=== PATIENT | female | born 1945 | race Caucasian/White ===

== ENCOUNTER → 2017-01-25 | Outpatient (CLI) | payer OTHER, MEDICARE | LOC: BMCIMAGING 14:38 | PROVIDERS: ATTEND Internal Medicine | DX: Z12.31 Encounter for screening mammogram for malignant neoplasm of breast (principal) | CPT/HCPCS: G0202 ==

== ENCOUNTER → 2017-10-21 | Outpatient (CLI) | payer OTHER, MEDICARE ==
[~2017-10-21] MED LIST: GADOBUTROL 10 ML VIAL IVP ONE
== END ==
LOC: FIMAGING 10:07
PROVIDERS: ATTEND Physician Assistant
DX: R93.0 Abnormal findings on diagnostic imaging of skull and head, not elsewhere classified (principal); J32.0 Chronic maxillary sinusitis; J32.3 Chronic sphenoidal sinusitis; H90.5 Unspecified sensorineural hearing loss
CPT/HCPCS: 70553; A9585

== ENCOUNTER → 2018-02-01 | Outpatient (CLI) | payer OTHER, MEDICARE | LOC: BMCIMAGING 16:11 | PROVIDERS: ATTEND Internal Medicine | DX: S92.515A Nondisplaced fracture of proximal phalanx of left lesser toe(s), initial encounter for closed fracture (principal); W22.03XA Walked into furniture, initial encounter ==

== ENCOUNTER → 2018-06-17 | Outpatient (CLI) | payer OTHER, MEDICARE | LOC: BMCIMAGING 15:10 | PROVIDERS: ATTEND Internal Medicine | DX: Z12.31 Encounter for screening mammogram for malignant neoplasm of breast (principal) ==

== ENCOUNTER 2018-11-15 18:00 | Emergency (ER) | payer OTHER, MEDICARE ==
--- NOTE | 2018-11-15 18:51 | EDPHY ---
General Time Seen by Provider: 11/15/18 18:51 Narrative: CLINICAL IMPRESSION: Left distal radius fracture ASSESSMENT/PLAN: Patient is a 73-year-old female with a significant history of asthma who presents with complaint of left forearm pain after sustaining a mechanical fall. Patient is nontoxic-appearing, she is in no acute distress on arrival. Forearm x-ray reveals subtle distal radius fracture. There was no evidence of open fracture, dislocation, compartment syndrome, DVT, cellulitis, septic arthritis or neurovascular compromise. Her history and physical examination is most consistent with acute left distal radius fracture. The patient was placed in a sugar-tong splint. CMS intact post splint placement. She declined need for narcotic, she was provided Tylenol. She was given a take-home pack for [place] and will otherwise continue Tylenol and /or ibuprofen as needed. Orthopedic referral provided, she will call tomorrow to schedule follow-up for repeat examination. Return precautions discussed-she will return to the emergency Department for significantly worsening or uncontrolled pain, significant swelling, numbness or tingling of the extremity, paleness or coolness of her digits, fever or for any other concerning symptom. The patient verbalizes understanding and she is in agreement with this plan. DIFFERENTIAL DX: Differential diagnosis including but not limited to contusion, sprain, fracture , dislocation, compartment syndrome ED PROCEDURES: Procedure: Splint placement. A sugar-tong splint was applied. After application of the splint I returned and re-examined the patient. The splint was adequately immobilizing the joint and distal to the splint the patient's circulation and sensation was intact. ED COURSE: 193: Discussed with Dr. Muñoz. CHIEF COMPLAINT: Left wrist and forearm pain. HPI: Patient is a 73-year-old female with a history of asthma who presents to the emergency department with left forearm pain after sustaining a trip and fall just prior to arrival. Patient reports she was walking her dog, got tangled in the leash when she accidentally fell landing directly on her left forearm. She did not fall with her arms stretched out, she hit directly on the lateral portion of her forearm. She did experience pain, it increases with rotating her forearm. Patient denies any previous injury or surgery to this extremity. She has not taken anything for pain prior to arrival. She denies any hand pain , wrist pain or elbow pain. She did not hit her head, there was no loss of consciousness. She denies any other injury or complaint. PAST MEDICAL HISTORY: Asthma Family History: Not contributory Social History: Occasional alcohol, denies cigarette smoking or illicit drug use ROS: A full 10 point review of systems was negative except for those mentioned in HPI. PHYSICAL EXAM: General Appearance: Alert, well-appearing and in no acute distress. HENT: Normocephalic, atraumatic. External ears are normal. Nares are clear, mucosa is pink. Oropharynx is clear. Eyes: PERRLA, EOMI. Conjunctiva pink, no pallor or injection. Neck: Supple, nontender, no lymphadenopathy, no midline pain, FROM. Respiratory: There are no retractions, lungs are clear to auscultation. Cardiac: Regular rate and rhythm, no murmurs or gallops. Gastrointestinal: Abdomen is soft, nontender, bowel sounds normal, no masses/ hernia, no rigidity, guarding or focal peritoneal findings. Skin: Warm, dry, no rashes, no nodules on palpation. Upper Extremities: Right upper extremity is unremarkable. Intact distal pulses, Full range of motion intact, no tenderness, no ecchymosis or edema. Left upper extremity patient has no shoulder tenderness, full range of motion. She has no elbow tenderness, full range of motion. She is able to pronate and supinate however this does increased pain along her generalized mid distal forearm. Patient is tender mid to distal ulna and radius without obvious deformity, ecchymosis or edema. She had no proximal radial head tenderness to palpation. She has no wrist tenderness to palpation, she is able of flex, extend, invert and zayra without difficulty. She has no anatomical snuffbox tenderness to palpation. She has no hand tenderness to palpation, 2 point discrimination is intact at each digit. The radial, ulnar and median nerves were all tested. Radial nerve: Patient is able to extend wrist and fingers of the local joints. Ulnar nerve: Patient is able to abduct all fingers. Median nerve patient is able to oppose thumb to pinky. Lower Extremities: Intact distal pulses, No edema, No tenderness, No cyanosis, full range of motion intact, No calf tenderness bilaterally. MEDICAL DECISION MAKING: Patient was seen independently. Secondary supervising physician at time of evaluation was Dr. Muñoz, he did not evaluate this patient. Diagnosis: Distal radius fracture. New, requires workup Summary: See Assessment and Plan for summary of ED visit Clinical lab tests: Not applicable. Independent visualization of images, tracing, or specimens: Yes. Decision to obtain medical records or history from someone other than the patient: No Review / Summarize previous medical records: Yes Patient Progress: Stable, discharge. - Diagnostics Imaging Results: Imaging Impressions Forearm X-Ray 11/15/18 18:18 Impression: Possibly a subtle distal radial fracture. Correlation with the site of symptoms is recommended. - History Smoking Status: Never smoked - Objective Vital Signs: Initial Vital Signs Temperature (C) 36.7 C 11/15/18 18:15 Heart Rate 74 11/15/18 18:15 Respiratory Rate 16 11/15/18 18:15 Blood Pressure 163/75 H 11/15/18 18:15 O2 Sat (%) 95 11/15/18 18:15 O2 Delivery Mode Room Air Allergies/Adverse Reactions: No Known Allergies Allergy (Unverified 11/15/18 18:15) Home Medications: Medication Instructions Recorded Flonase Nasal [place] 11/15/18 Singulair 11/15/18 Symbicort 160-4.5 Mcg Inh (*) 11/15/18 Medications Given: Discontinued Medications Acetaminophen (Tylenol) 650 mg PO EDNOW ONE Stop: 11/15/18 19:51 Last Admin: 11/15/18 19:57 Dose: 650 mg Hydrocodone Bitart/Acetaminophen ([place] 5/325mg Prepack#6) 1 btl TAKEHOME EDNOW ONE Stop: 11/15/18 19:50 Last Admin: 11/15/18 19:58 Dose: 1 btl Departure - Departure Disposition: Home, Routine, Self-Care Clinical Impression: Distal radius fracture, left Qualifiers: Encounter type: initial encounter Fracture type: closed Fracture morphology: unspecified fracture morphology Qualified Code(s): S52.502A - Unspecified fracture of the lower end of left radius, initial encounter for closed fracture Condition: Good Instructions: Hydrocodone/Acetaminophen (By mouth), Arm Fracture in Adults (ED) Additional Instructions: DISCHARGE INSTRUCTIONS FROM YOUR DOCTOR Thank you for visiting our emergency department today. Please keep in mind that discharge from the emergency department does not mean that there is nothing wrong - it simply means that we have not identified an emergency condition that requires further evaluation or treatment in the hospital. You should always plan to follow up with primary care for re-evaluation of your condition in the next 2-3 days. If you have been referred to a specialist, please call as soon as possible ( today or tomorrow) to schedule your follow up appointment at the appropriate time; please call to schedule an appointment for orthopedic follow-up. Rest, ice (on and off), elevate the wrist and hand as possible above the level of the heart to decrease pain and swelling. Wear the splint as applied. Do not remove splint and do not get it wet. For pain control: You may take Tylenol, I recommend 500-1000 mg every 6-8 hours as needed. Take with food and a full glass of water. Stop taking if this is upsetting her stomach. Do not exceed 3000mg in a 24 hr period. You may also take ibuprofen, recommend 400 mg every 6 hr. Take with food and a full glass of water. Stop taking if this upsets her stomach. Do not exceed 2400 mg in a 24 hr period. You have been prescribed [place] which is a narcotic. Please do not drive or operate machinery while taking this medication as it may make you drowsy. It may also be habit forming. This medication can also cause constipation, recommend taking 100 mg of Colace twice daily while taking this medication. This medication also contains Tylenol, please do not take other Tylenol containing products with this medication. Continue your regular medications as prescribed. Return for increased pain or swelling, numbness, tingling or weakness of the fingers, discoloration of the fingers, fever,inability to move your fingers or any other new, worsening or worrisome symptoms. People present with illnesses and injuries in different ways, and it is always possible that we have missed something. You may always return for re-evaluation if symptoms worsen or if they are not improving or if you develop new/different symptoms. Again, thank you for choosing our emergency department. We hope that you feel better. Referrals: Teri Barnes MD [Primary Care Provider] - As per Instructions Finn Thompson MD [Medical Doctor] - 2-3 days, call for appt.
[2018-11-15] MEDS ORDERED: HYDROCOD/APAP 5/325 PREPACK#6 BTL TAKEHOME ONE (19:49)
[2018-11-15] MEDS ORDERED: ACETAMINOPHEN 325 MG TAB PO ONE (19:50)
[2018-11-15 20:05] VITALS: BP 146/105
== END 2018-11-15 20:03 | disposition home or self-care (01) ==
PROC: 2W3DX1Z Immobilization of Left Lower Arm using Splint (ICD-10-PCS; principal; 2018-11-15)
DX: S52.502A Unspecified fracture of the lower end of left radius, initial encounter for closed fracture (principal); W01.0XXA Fall on same level from slipping, tripping and stumbling without subsequent striking against object, initial encounter; Y93.K1 Activity, walking an animal
CPT/HCPCS: 29125; 73090; 99283; A4565

== ENCOUNTER → 2018-12-22 | Outpatient (CLI) | payer OTHER, MEDICARE | LOC: BMCIMAGING 14:12 | PROVIDERS: ATTEND Internal Medicine | DX: Z13.820 Encounter for screening for osteoporosis (principal); M85.89 Other specified disorders of bone density and structure, multiple sites; Z78.0 Asymptomatic menopausal state ==

== ENCOUNTER → 2019-01-09 | Outpatient (CLI) | payer OTHER, MEDICARE | LOC: FIMAGING 14:27 ==